=== PATIENT | female | born 1955 | race Caucasian/White ===

== ENCOUNTER 2018-05-12 13:48 | Emergency (ER) | payer MEDICARE, MEDICAID ==
[~2018-05-12] VITALS: Ht 172.7 cm; Wt 65.0 kg
[~2018-05-12 13:48] MED LIST: CYCL-1 PO; DEXL30CA3 PO; DULO-31 PO; HYDR-565 PO; TRAZ-146 PO
[2018-05-12 13:52] VITALS: BP 153/82
[2018-05-12 14:24] LABS: BASOPHILS % (AUTO) 0.6 % (0-1); EOSINOPHILS % (AUTO) 0.3 % (0-6); HEMOGLOBIN 13.8 g/dl (12.0-16.0); LYMPHOCYTES # (AUTO) 2.5 X10'3 (1.1-4.8); LYMPHOCYTES % (AUTO) 32.3 % (21-51); MEAN CORPUSCULAR HEMOGLOBIN 30.5 PG (27.0-31.0); MEAN CORPUSCULAR HGB CONC 33.7 % (33.0-36.5); MEAN CORPUSCULAR VOLUME 90.7 FL (78-98); MEAN PLATELET VOLUME 8.9 FL (7.4-10.4); MONOCYTES # (AUTO) 0.6 X10'3 (0-0.9); MONOCYTES % (AUTO) 7.7 % (2-12); NEUTROPHILS # (AUTO) 4.6 X10'3 (1.8-7.7); NEUTROPHILS % (AUTO) 59.1 % (42-75); PLATELET COUNT 258 X10'3 (140-440); RED BLOOD COUNT 4.52 X10'6 (4.20-5.60); RED CELL DISTRIBUTION WIDTH 15.2 % (11.5-14.5); WHITE BLOOD COUNT 7.8 X10'3 (4.5-11.0)
[2018-05-12 14:26] LABS: CLARITY,URINE CLEAR (Clear); COLOR,URINE YELLOW (Yellow); GLUCOSE, URINE NEGATIVE (Neg); KETONES,URINE TRACE mg/dl (Neg); LEUKOCYTE ESTERASE ,URINE NEGATIVE (Neg); NITRITES, URINE NEGATIVE (Neg); OCCULT BLOOD,URINE MODERATE (Neg); PROTEIN,URINE TRACE mg/dl (Neg); URINE HCG NEGATIVE (NEG)
[2018-05-12 14:29] LABS: UA COLLECTION TYPE CLN CATCH MIDSTREAM
[2018-05-12 14:30] LABS: PROTHROMBIN TIME 10.3 SECONDS (9.0-12.0)
[2018-05-12 14:36] LABS: ALANINE AMINOTRANSFERASE 24 U/L (12-78); ALKALINE PHOSPHATASE 100 IU/L (46-116); ANION GAP 11 (8-16); ASPARTATE AMINO TRANSFERASE 23 U/L (10-37); BILIRUBIN,TOTAL 0.9 MG/DL (0.1-1.0); BLOOD UREA NITROGEN 10 MG/DL (7-18); BUN/CREATININE RATIO 11.4 (6.6-38.0); CALCIUM 9.1 MG/DL (8.5-10.1); CHLORIDE 102 MMOL/L (99-107); CREATININE 0.88 MG/DL (0.40-0.90); GLUCOSE 109 MG/DL (70-104); POTASSIUM 3.6 MMOL/L (3.5-5.1); SODIUM 140 MMOL/L (135-145); TOTAL CARBON DIOXIDE 27.5 MMOL/L (24-32); TOTAL PROTEIN 7.9 G/DL (6.4-8.2); eGFR 65 ML/MIN
[2018-05-12 14:37] LABS: BACTERIA,URINE NONE SEEN /HPF (Neg); MUCUS STRANDS MODERATE /LPF (Neg); SQUAMOUS EPITHELIAL CELL,UR FEW /LPF (FEW); WBC,URINE NONE SEEN /HPF (0-4)
[2018-05-12] MEDS ORDERED: ketorolac trometh inj. 60 MG/2 ML VIAL IM ONE (15:25)
== END 2018-05-12 15:57 | disposition home or self-care (01) ==
LOC: ER 13:49
DX: G89.29 Other chronic pain (principal); M54.2 Cervicalgia; M54.9 Dorsalgia, unspecified; M25.519 Pain in unspecified shoulder; E86.0 Dehydration; Z98.84 Bariatric surgery status; Z98.890 Other specified postprocedural states; Z88.2 Allergy status to sulfonamides; Z79.899 Other long term (current) drug therapy
CPT/HCPCS: 36415; 80053; 81001; 81025; 85025; 85610; 96372; 99284; J1885

== ENCOUNTER 2018-10-23 09:12 | Emergency (ER) | payer MEDICARE, MEDICAID ==
[~2018-10-23] VITALS: Ht 172.7 cm; Wt 55.9 kg
[~2018-10-23 09:12] MED LIST changes: +HYDR-4353 PO; -HYDR-565 PO; -TRAZ-146 PO; +TRAZ-219 PO
[2018-10-23 09:25] VITALS: BP 145/68
[2018-10-23] MEDS ORDERED: TETRACAINE 0.5% 5 ML OPHTHALMIC DROPS LEFTEYE ONE (10:05)
[2018-10-23] MEDS ORDERED: erythromycin ophthalmic ointment 1gm tube LEFTEYE ONE (10:05)
[2018-10-23] MEDS ORDERED: proparacaine 0.5% ophthalmic drops 15ml LEFTEYE ONE (10:15)
[2018-10-23] MEDS ORDERED: ERYT1OIN6 LEFTEYE (10:16)
[2018-10-23] MEDS ORDERED: HYDR-4353 PO (10:16)
== END 2018-10-23 10:27 | disposition left against medical advice (07) ==
LOC: ER 09:13
DX: S05.02XA Injury of conjunctiva and corneal abrasion without foreign body, left eye, initial encounter (principal); G89.29 Other chronic pain; Z98.890 Other specified postprocedural states; Z88.2 Allergy status to sulfonamides; Z79.899 Other long term (current) drug therapy; W54.8XXA Other contact with dog, initial encounter; Y93.89 Activity, other specified; Y92.89 Other specified places as the place of occurrence of the external cause; Y99.8 Other external cause status
CPT/HCPCS: 99283

== ENCOUNTER 2021-02-15 13:13 | Emergency (ER) | payer MEDICARE, MEDICAID ==
[~2021-02-15] VITALS: Ht 172.7 cm; Wt 52.3 kg
[~2021-02-15 13:13] MED LIST changes: +COR3.125T PO; -CYCL-1 PO; +CYCL-145 PO; -DEXL30CA3 PO; -DULO-31 PO; +DULO60CA65 PO; +ESTR0.5T29 PO; -HYDR-4353 PO; +LISI2.5T2 PO; +OXYC1TAB17 PO; +PANT-47 PO; -TRAZ-219 PO; +TRAZ-256 PO
[2021-02-15 13:52] LABS: BASOPHILS % (AUTO) 0.6 % (0-1); EOSINOPHILS % (AUTO) 0.4 % (0-6); HEMATOCRIT 40.9 % (35.0-45.0); HEMOGLOBIN 13.6 g/dl (12.0-16.0); LYMPHOCYTES # (AUTO) 1.8 X10'3 (1.1-4.8); LYMPHOCYTES % (AUTO) 34.4 % (21-51); MEAN CORPUSCULAR HEMOGLOBIN 30.5 PG (27.0-31.0); MEAN CORPUSCULAR HGB CONC 33.3 g/dL (33.0-36.5); MEAN CORPUSCULAR VOLUME 91.7 FL (78-98); MEAN PLATELET VOLUME 9.3 FL (7.4-10.4); MONOCYTES # (AUTO) 0.4 X10'3 (0-0.9); MONOCYTES % (AUTO) 7.8 % (2-12); NEUTROPHILS # (AUTO) 2.9 X10'3 (1.8-7.7); NEUTROPHILS % (AUTO) 56.8 % (42-75); PLATELET COUNT 230 X10'3 (140-440); RED BLOOD COUNT 4.46 X10'6 (4.20-5.60); RED CELL DISTRIBUTION WIDTH 13.3 % (11.5-14.5); WHITE BLOOD COUNT 5.1 X10'3 (4.5-11.0)
[2021-02-15 13:57] LABS: ALANINE AMINOTRANSFERASE 18 U/L (12-78); ALBUMIN 3.6 G/DL (3.4-5.0); ALBUMIN/GLOBULIN RATIO 1.1 (1.1-1.5); ALKALINE PHOSPHATASE 76 IU/L (46-116); ANION GAP 6 (8-16); ASPARTATE AMINO TRANSFERASE 15 U/L (10-37); BILIRUBIN,TOTAL 0.5 MG/DL (0.1-1.0); BLOOD UREA NITROGEN 8 MG/DL (7-18); BUN/CREATININE RATIO 10.1 (6.6-38.0); CALCIUM 8.9 MG/DL (8.5-10.1); CHLORIDE 106 MMOL/L (99-107); CREATININE 0.79 MG/DL (0.40-0.90); GLUCOSE 86 MG/DL (70-104); POTASSIUM 3.6 MMOL/L (3.5-5.1); SODIUM 141 MMOL/L (135-145); TOTAL CARBON DIOXIDE 28.6 MMOL/L (24-32); eGFR 73 ML/MIN
[2021-02-15] MEDS ORDERED: ketorolac tromethamine 15mg/ml inj. IM ONE (16:00)
[2021-02-15 16:49] VITALS: BP 147/66
== END 2021-02-15 16:11 | disposition home or self-care (01) ==
LOC: ER 13:14
DX: G89.4 Chronic pain syndrome (principal); R07.89 Other chest pain; R06.02 Shortness of breath; F41.9 Anxiety disorder, unspecified; I10 Essential (primary) hypertension; I25.2 Old myocardial infarction; Z98.890 Other specified postprocedural states; Z88.2 Allergy status to sulfonamides; Z79.899 Other long term (current) drug therapy
CPT/HCPCS: 36415; 71045; 80053; 83880; 84484; 85025; 93005; 96372; 99285; J1885

== ENCOUNTER 2023-12-10 10:44 | Emergency (ER) | payer MEDICARE, MEDICAID ==
[~2023-12-10] VITALS: Ht 170.2 cm; Wt 55.3 kg
[~2023-12-10 10:44] MED LIST changes: +BUPR1PAT TOP; +CARV3.122 PO; -COR3.125T PO; -CYCL-145 PO; -LISI2.5T2 PO; -OXYC1TAB17 PO; -PANT-47 PO; +PANT40TA54 PO; +QUET100T34 PO
[2023-12-10 10:45] VITALS: BP 122/36; PULSE 65; TEMP 98; O2SAT 100
[2023-12-10 11:03] VITALS: RESP 18
[2023-12-10] MEDS ORDERED: ALBU8HFA INH (11:30)
[2023-12-10] MEDS ORDERED: AMOX-580 PO (11:42)
== END 2023-12-10 12:04 | disposition home or self-care (01) ==
LOC: ER 10:45
DX: J20.9 Acute bronchitis, unspecified (principal); G89.29 Other chronic pain; M54.9 Dorsalgia, unspecified; I10 Essential (primary) hypertension; Z88.2 Allergy status to sulfonamides; Z79.899 Other long term (current) drug therapy
CPT/HCPCS: 71045; 99283